=== PATIENT | male | born 1985 | race Caucasian/White ===

== ENCOUNTER 2017-09-07 00:43 | Emergency (ER) | payer BC ==
[2017-09-07] MEDS ORDERED: ONDANSETRON 4 MG/2 ML VIAL IVP ONE (00:53)
[2017-09-07] MEDS ORDERED: HYDROmorphONE/DILAUDID 1 MG/ML INJ IVP ONE ×3 (00:53→03:10)
[2017-09-07] MEDS ORDERED: NS 1,000 ML IV ONE (00:53)
[2017-09-07 01:08] LABS: % IMMATURE GRANULYOCYTES 0.4 % (0.0-1.1); ABSOLUTE IMMATURE GRANULOCYTES 0.05 10^3/uL (0.00-0.10); ADD DIFF? NO; ADD MORPH? NO; ADD SCAN? NO; ATYPICAL LYMPHOCYTE FLAG 30 (0-99); FRAGMENT RBC FLAG 0 (0-99); HEMATOCRIT 47.6 % (40.0-51.0); HEMOGLOBIN 16.7 g/dL (13.7-17.5); LEFT SHIFT FLG 0 (0-99); LIPEMIA HEMOLYSIS FLAG 90 (0-99); MEAN CELL HEMOGLOBIN 30.1 pg (27.9-34.1); MEAN CELL HEMOGLOBIN CONCENTR. 35.1 g/dL (32.4-36.7); MEAN CELL VOLUME 85.9 fL (81.5-99.8); MEAN PLATELET VOLUME 10.1 fL (8.7-11.7); PLATELET CLUMPS FLAG 10 (0-99); PLATELET COUNT 315 10^3/uL (150-400); RED BLOOD CELL COUNT 5.54 10^6/uL (4.40-6.38); RED CELL DISTRIBUTION WIDTH 13.2 % (11.5-15.2)
[2017-09-07 01:18] LABS: ANION GAP 17 mEq/L (8-16); CALCIUM 9.6 mg/dL (8.5-10.4); CARBON DIOXIDE 21 mEq/l (22-31); CHLORIDE 108 mEq/L (97-110); CREATININE 1.3 mg/dL (0.7-1.3); GLOMERULAR FILTRATION RATE > 60; GLUCOSE 111 mg/dL (70-100); POTASSIUM 3.8 mEq/L (3.5-5.2); SODIUM 146 mEq/L (134-144)
[2017-09-07] MEDS ORDERED: TAMSULOSIN HCL 0.4 MG CAP PO ONE (01:20)
[2017-09-07] MEDS ORDERED: KETOROLAC 30 MG/1 ML SDV IVP ONE (01:24)
--- NOTE | 2017-09-07 01:28 | EDPHY ---
H & P Time Seen by Provider: 09/07/17 00:53 HPI/ROS: HPI Right flank pain. Vomiting. 32-year-old male by private vehicle with his significant other. This patient reports that he was awakened at 12:30 a.m. with cramping severe right-sided flank pain. He had associated nausea and 1 episode of nonbilious, nonbloody vomiting when he got the emergency department here. No prior history of kidney stones. No history of fall or trauma. No fever. No other complaints. ROS: Constitutional: No fever, no chills. No weakness. Eyes: No discharge. No changes in vision. ENT: No sore throat. No nasal congestion or rhinorrhea. Respiratory: No cough. No shortness of breath. Cardiac: No chest pain, no palpitations. Gastrointestinal: No abdominal pain, as above, no diarrhea. Genitourinary: No hematuria. No dysuria or increased frequency with urination. Musculoskeletal: As above. No neck pain. No myalgias or arthralgias. Skin: No rashes. Neurological: No headache. No focal weakness or altered sensation. Past medical history: He denies any significant past medical history. Social history: Nonsmoker. No alcohol. Here with his significant other. Physical Exam: General Appearance: Alert, he appears uncomfortable. This patient is responding to questions appropriately and in full sentences. This patient appears well-hydrated and well-nourished. Eyes: Pupils equal and round no pallor or injection. No lid edema, erythema or injection. Respiratory: There are no retractions, lungs are clear to auscultation with good air movement bilaterally. Cardiovascular: Regular rate and rhythm. No murmur. Gastrointestinal: Abdomen is soft with vague right-sided abdominal tenderness on palpation which is mild, no masses, bowel sounds normal. No focal tenderness at McBurney's point. No Chapman sign. Neurological: Motor sensory function is grossly intact. Cranial nerves are normal. Gait is normal. Skin: Warm and dry, no rashes. Musculoskeletal: Neck is supple and nontender. Mild right CVA tenderness on palpation. No left-sided CVA tenderness on palpation. Extremities are symmetrical. All joints range without pain or impingement. Psychiatric: No agitation. No depression. Database: EKG: Imaging: CT of the abdomen and pelvis without contrast: Significant for 3-4 mm mid right -sided ureteral stone with mild associated hydronephrosis. Study otherwise normal. Results were discussed with staff radiologist Dr. Bruno Parham. Procedures: Emergency department course: IV placed. Vital signs reviewed. He was started on IV normal saline with 1 L to be given over the next hour. He was initially medicated with 1 mg of IV hydromorphone, and 4 mg of IV Zofran. He was sent for CT imaging as above. 1:25 a.m., patient re-evaluated. Pain controlled at this time. Results of CT scan, diagnosis and emergency department workup discussed with him and his significant other. He was given 0.4 mg of Flomax orally and 30 mg of IV Toradol. He has no contraindications to NSAIDs. 2:30 a.m., the patient is requesting more pain medication. He was given an additional 0.5 mg of IV hydromorphone. 3:15 a.m., patient given a 2nd 0.5 mg doses of IV hydromorphone for pain control. He has had 2 mg total. Discussed admission with him if pain is not controlled on re-evaluation. 4:00 a.m., patient re-evaluated. Pain well controlled. He feels comfortable going home at this time. I discussed follow-up with Urology. I discussed ibuprofen dosing. I will discharge him with a prescription for Flomax as well as some Vicodin and stool softeners. Return to emergency department precautions reviewed with him. He understands his follow-up. All of his questions were answered. He was discharged in good condition. Differential Diagnosis: The differential diagnosis on this patient includes but is not limited to right- sided kidney stone. Appendicitis, cholecystitis, testicular torsion unlikely. This represents a partial list of diagnoses considered. These considerations are based on history, physical exam, past history, reassessment and diagnostic testing. Smoking Status: Never smoked Constitutional: Initial Vital Signs Temperature (C) 36.4 C 09/07/17 00:46 Heart Rate 93 09/07/17 00:46 Respiratory Rate 24 H 09/07/17 00:46 Blood Pressure 140/106 H 09/07/17 00:46 O2 Sat (%) 99 09/07/17 00:46 O2 Delivery Mode Room Air O2 (L/minute) 2 Allergies/Adverse Reactions: No Known Allergies Allergy (Unverified 09/07/17 00:44) Home Medications: Medication Instructions Recorded Docusate Sodium [Colace 100 MG (*)] 100 mg PO TID #20 cap 09/07/17 Hydrocodone/APAP 5/325 [[place] 1 - 2 tab PO Q4-6PRN PRN #14 tab 09/07/17 5/325 (*)] Tamsulosin HCl [Flomax 0.4 MG (*)] 0.4 mg PO DAILY #4 cap 09/07/17 Medical Decision Making - Data Points Laboratory Results: Laboratory Results 09/07/17 00:57 09/07/17 00:57 09/07/17 09/07/17 09/07/17 01:50 00:57 00:57 WBC 12.54 10^3/uL H 10^3/uL (3.80-9.50) RBC 5.54 10^6/uL 10^6/uL (4.40-6.38) Hgb 16.7 g/dL g/dL (13.7-17.5) Hct 47.6 % % (40.0-51.0) MCV 85.9 fL fL (81.5-99.8) MCH 30.1 pg pg (27.9-34.1) MCHC 35.1 g/dL g/dL (32.4-36.7) RDW 13.2 % % (11.5-15.2) Plt Count 315 10^3/uL 10^3/uL (150-400) MPV 10.1 fL fL (8.7-11.7) Neut % (Auto) 37.4 % L % (39.3-74.2) Lymph % (Auto) 48.2 % H % (15.0-45.0) [place] % (Auto) 10.8 % % (4.5-13.0) Eos % (Auto) 2.7 % % (0.6-7.6) Baso % (Auto) 0.5 % % (0.3-1.7) Nucleat RBC Rel Count 0.0 % % (0.0-0.2) Absolute Neuts (auto) 4.69 10^3/uL 10^3/uL (1.70-6.50) Absolute Lymphs (auto) 6.05 10^3/uL H 10^3/uL (1.00-3.00) Absolute Monos (auto) 1.35 10^3/uL H 10^3/uL (0.30-0.80) Absolute Eos (auto) 0.34 10^3/uL 10^3/uL (0.03-0.40) Absolute Basos (auto) 0.06 10^3/uL 10^3/uL (0.02-0.10) Absolute Nucleated RBC 0.00 10^3/uL 10^3/uL (0-0.01) Immature Gran % 0.4 % % (0.0-1.1) Immature Gran # 0.05 10^3/uL 10^3/uL (0.00-0.10) Sodium 146 mEq/L H mEq/L (134-144) Potassium 3.8 mEq/L mEq/L (3.5-5.2) Chloride 108 mEq/L mEq/L (97-110) Carbon Dioxide 21 mEq/l L mEq/l (22-31) Anion Gap 17 mEq/L H mEq/L (8-16) BUN 19 mg/dL mg/dL (7-23) Creatinine 1.3 mg/dL mg/dL (0.7-1.3) Estimated GFR > 60 Glucose 111 mg/dL H mg/dL (70-100) Calcium 9.6 mg/dL mg/dL (8.5-10.4) Urine Color YELLOW Urine Appearance MODERATELY TURBID Urine pH 5.0 (5.0-7.5) Ur Specific [place] 1.024 (1.002-1.030) Urine Protein 1+ H (NEGATIVE) Urine Ketones NEGATIVE (NEGATIVE) Urine Blood 3+ H (NEGATIVE) Urine Nitrate NEGATIVE (NEGATIVE) Urine Bilirubin NEGATIVE (NEGATIVE) Urine Urobilinogen NEGATIVE EU EU (0.2-1.0) Ur Leukocyte Esterase NEGATIVE (NEGATIVE) Urine RBC 50-182 /hpf H /hpf (0-3) Urine WBC 1-3 /hpf /hpf (0-3) Ur Epithelial Cells NONE SEEN /lpf /lpf (NONE-1+) Urine Mucus 1+ /lpf /lpf (NONE-1+) Urine Glucose NEGATIVE (NEGATIVE) Medications Given: Discontinued Medications Hydromorphone HCl (Dilaudid) 1 mg IVP EDNOW ONE Stop: 09/07/17 00:54 Last Admin: 09/07/17 01:06 Dose: 1 mg Hydromorphone HCl (Dilaudid) 0.5 mg IVP EDNOW ONE Stop: 09/07/17 02:35 Last Admin: 09/07/17 02:36 Dose: 0.5 mg Hydromorphone HCl (Dilaudid) 0.5 mg IVP EDNOW ONE Stop: 09/07/17 03:11 Last Admin: 09/07/17 03:17 Dose: 0.5 mg Sodium Chloride (Ns) 1,000 mls @ 0 mls/hr IV EDNOW ONE; Wide Open PRN Reason: Protocol Stop: 09/07/17 00:54 Last Admin: 09/07/17 01:06 Dose: 1,000 mls Ketorolac Tromethamine (Toradol) 30 mg IVP EDNOW ONE Stop: 09/07/17 01:25 Last Admin: 09/07/17 01:29 Dose: 30 mg Ondansetron HCl (Zofran) 4 mg IVP EDNOW ONE Stop: 09/07/17 00:54 Last Admin: 09/07/17 01:06 Dose: 4 mg Tamsulosin HCl (Flomax) 0.4 mg PO EDNOW ONE Stop: 09/07/17 01:21 Last Admin: 09/07/17 01:29 Dose: 0.4 mg Departure - Departure Disposition: Home, Routine, Self-Care Clinical Impression: Calculus of right kidney Condition: Good Instructions: Kidney Stones (ED) Additional Instructions: Read and follow provided instructions. Follow-up with Urology this week for re-evaluation as discussed. Take medication as prescribed. [place]/Percocet dosin-2 every 4-6 [address] for [address] Do not drive on this medication. Do not start taking ibuprofen until tomorrow morning. Ibuprofen dosin mg every 6 hours with meals for the next 3 days only. Return to the emergency department for worsening pain, vomiting, fever or other serious concerns. Referrals: Tereza Daniel MD [Medical Doctor] - As per Instructions May Buckley MD [Medical Doctor] - As per Instructions Prescriptions: Docusate Sodium [Colace 100 MG (*)] 100 mg PO TID #20 cap Hydrocodone/APAP 5/325 [[place] 5/325 (*)] 1 - 2 tab PO Q4-6PRN PRN #14 tab PRN Reason: Pain, Moderate Tamsulosin HCl [Flomax 0.4 MG (*)] 0.4 mg PO DAILY #4 cap
[2017-09-07 01:37] VITALS: O2SAT 95
[2017-09-07 02:02] LABS: COLOR YELLOW; LEUKOCYTE ESTERASE,URINE NEGATIVE (NEGATIVE); NITRITE,URINE NEGATIVE (NEGATIVE)
[2017-09-07 02:10] LABS: MUCUS 1+ /lpf (NONE-1+); RBC,URINE 50-182 /hpf (0-3)
[2017-09-07] MEDS ORDERED: HYDROmorphONE/DILAUDID 1 MG/ML INJ ONE (02:29)
[2017-09-07 04:30] VITALS: BP 132/79; PULSE 95; RESP 18; TEMP 98.6
== END 2017-09-07 04:28 | disposition home or self-care (01) ==
DX: N20.0 Calculus of kidney (principal); E86.9 Volume depletion, unspecified
CPT/HCPCS: 96374; J1170; J1885; J2405

== ENCOUNTER 2017-09-09 00:03 | Observation (INO) | payer BC ==
[2017-09-09] MEDS ORDERED: NS 1,000 ML IV ONE ×2 (00:32→01:17)
[2017-09-09] MEDS ORDERED: ONDANSETRON 4 MG/2 ML VIAL IVP ONE (00:32)
[2017-09-09] MEDS ORDERED: ONDANSETRON 4 MG/2 ML VIAL ONE (00:35)
[2017-09-09] MEDS ORDERED: HYDROmorphONE/DILAUDID 1 MG/ML INJ ONE (00:36)
[2017-09-09] MEDS ORDERED: KETOROLAC 15 MG/1 ML SDV ONE (00:37)
[2017-09-09] MEDS ORDERED: KETOROLAC 15 MG/1 ML SDV IVP ONE (00:43)
[2017-09-09] MEDS ORDERED: HYDROmorphONE/DILAUDID 1 MG/ML INJ IVP ONE (00:44)
[2017-09-09 01:12] LABS: % IMMATURE GRANULYOCYTES 0.3 % (0.0-1.1); ABSOLUTE IMMATURE GRANULOCYTES 0.05 10^3/uL (0.00-0.10); ADD DIFF? NO; ADD MORPH? NO; ADD SCAN? NO; ANION GAP 17 mEq/L (8-16); ATYPICAL LYMPHOCYTE FLAG 0 (0-99); CARBON DIOXIDE 21 mEq/l (22-31); CHLORIDE 105 mEq/L (97-110); FRAGMENT RBC FLAG 0 (0-99); GLOMERULAR FILTRATION RATE 39; GLUCOSE 104 mg/dL (70-100); HEMATOCRIT 44.2 % (40.0-51.0); HEMOGLOBIN 15.3 g/dL (13.7-17.5); LEFT SHIFT FLG 10 (0-99); LIPEMIA HEMOLYSIS FLAG 90 (0-99); MEAN CELL HEMOGLOBIN 29.5 pg (27.9-34.1); MEAN CELL HEMOGLOBIN CONCENTR. 34.6 g/dL (32.4-36.7); MEAN CELL VOLUME 85.2 fL (81.5-99.8); MEAN PLATELET VOLUME 10.4 fL (8.7-11.7); PLATELET CLUMPS FLAG 0 (0-99); PLATELET COUNT 236 10^3/uL (150-400); POTASSIUM 4.2 mEq/L (3.5-5.2); RED BLOOD CELL COUNT 5.19 10^6/uL (4.40-6.38); RED CELL DISTRIBUTION WIDTH 13.2 % (11.5-15.2); SODIUM 143 mEq/L (134-144)
[2017-09-09 01:15] LABS: COLOR YELLOW; LEUKOCYTE ESTERASE,URINE NEGATIVE (NEGATIVE); NITRITE,URINE NEGATIVE (NEGATIVE)
[2017-09-09 01:19] LABS: MUCUS TRACE /lpf (NONE-1+); RBC,URINE 50-182 /hpf (0-3)
--- NOTE | 2017-09-09 01:29 | EDPHY ---
H & P Stated Complaint: R sided flank pain, kidney stone on Thursday Time Seen by Provider: 09/09/17 01:03 HPI/ROS: HPI The patient presents with recurrent right-sided flank pain which is achy in nature and radiates to his right lower quadrant and is severe. It began at about 9:00 p.m. tonight until to max intensity at 11:00 p.m.. He took his pain medication at home, then vomited it up and then came into the emergency department. On September 07 he was diagnosed with a 3-4 mm right-sided ureteral stone with mild hydronephrosis found on CT scan. He says the pain feels similar to this though has moved a bit distal in location. He is able to urinate and has been drinking plenty of fluids. He has no prior history of kidney stone. He does not have any fever.. REVIEW OF SYSTEMS Constitutional: No fever, no chills. Eyes: No discharge. ENT: No sore throat. Cardiovascular: No chest pain, no palpitations. Respiratory: No cough, no shortness of breath. Gastrointestinal: No abdominal pain, positive for vomiting. Genitourinary: No hematuria. Musculoskeletal: No back pain. Skin: No rashes. Neurological: No headache. PMHx: Recent diagnosis of kidney stone Housed PHYSICAL General Appearance: Alert, no distress Eyes: Pupils equal and round no pallor or injection ENT, Mouth: Mucous membranes moist Respiratory: There are no retractions, lungs are clear to auscultation Cardiovascular: Regular rate and rhythm Gastrointestinal: Abdomen is soft with mild tenderness in the right lower quadrant, no masses, bowel sounds normal Back: Right flank tenderness Neurological: A&O, moves all extremities Skin: Warm and dry, no rashes Musculoskeletal: Neck is supple non tender Extremities: symmetrical, full range of motion Psychiatric: Patient is oriented X 3, there is no agitation Source: Patient, Old records Exam Limitations: No limitations - Personal History Current Tetanus/Diphtheria Vaccine: Yes Current Tetanus Diphtheria and Acellular Pertussis (TDAP): Yes - Medical/Surgical History Hx Asthma: No Hx Chronic Respiratory Disease: No Hx Diabetes: No Hx Cardiac Disease: No Hx Renal Disease: No Hx Cirrhosis: No Hx Alcoholism: No Hx HIV/AIDS: No Hx Splenectomy or Spleen Trauma: No Other PMH: denies - Social History Smoking Status: Never smoked Constitutional: Initial Vital Signs Temperature (C) 36.7 C 09/09/17 00:13 Heart Rate 82 09/09/17 00:13 Respiratory Rate 18 09/09/17 00:13 Blood Pressure 120/78 09/09/17 00:13 O2 Sat (%) 98 09/09/17 00:13 O2 Delivery Mode Room Air Allergies/Adverse Reactions: No Known Allergies Allergy (Unverified 09/09/17 00:13) Home Medications: Medication Instructions Recorded Docusate Sodium [Colace 100 MG (*)] 100 mg PO TID #20 cap 09/07/17 Hydrocodone/APAP 5/325 [[place] 1 - 2 tab PO Q4-6PRN PRN #14 tab 09/07/17 5/325 (*)] Tamsulosin HCl [Flomax 0.4 MG (*)] 0.4 mg PO DAILY #4 cap 09/07/17 Medical Decision Making - Diagnostics Imaging Results: Ultrasound kidneys shows mild hydronephrosis, kidney stone is visualized at the right UVJ, discussed with Dr. Mccoy of Radiology. Imaging: Discussed imaging studies w/ score caller Radiologist Differential Diagnosis: 32-year-old male, 2 days ago was diagnosed with right-sided ureterolithiasis based on CT scan, now returns with increased pain and vomiting. On exam, he has normal vital signs, he has received pain medication prior to my assessment is feeling much better. Labs were checked and did reveal increasing creatinine to 2.0. UA showed continued hematuria without any signs of infection. Ultrasound demonstrated mild hydronephrosis again, now stone has migrated to the UVJ on the right. CT measures the stone at 3-4 mm, thus it has a good chance of passing on its own. Patient was reassessed and after receiving fluids and pain medication, he had recurrence of his pain. He does not feel well enough to go home. Given his increased creatinine from 1.3-2.0, I feel he should be watched with continued hydration. I have discussed the case with the hospitalist machine stone polisher apprentice Dr. Reich who will admit the patient for observation. - Data Points Laboratory Results: Laboratory Results 09/09/17 00:30 09/09/17 00:30 09/09/17 09/09/17 09/09/17 00:30 00:30 00:25 WBC 14.55 10^3/uL H 10^3/uL (3.80-9.50) RBC 5.19 10^6/uL 10^6/uL (4.40-6.38) Hgb 15.3 g/dL g/dL (13.7-17.5) Hct 44.2 % % (40.0-51.0) MCV 85.2 fL fL (81.5-99.8) MCH 29.5 pg pg (27.9-34.1) MCHC 34.6 g/dL g/dL (32.4-36.7) RDW 13.2 % % (11.5-15.2) Plt Count 236 10^3/uL D 10^3/uL (150-400) MPV 10.4 fL fL (8.7-11.7) Neut % (Auto) 79.6 % H % (39.3-74.2) Lymph % (Auto) 10.7 % L % (15.0-45.0) [place] % (Auto) 8.4 % % (4.5-13.0) Eos % (Auto) 0.7 % % (0.6-7.6) Baso % (Auto) 0.3 % % (0.3-1.7) Nucleat RBC Rel Count 0.0 % % (0.0-0.2) Absolute Neuts (auto) 11.59 10^3/uL H 10^3/uL (1.70-6.50) Absolute Lymphs (auto) 1.55 10^3/uL 10^3/uL (1.00-3.00) Absolute Monos (auto) 1.22 10^3/uL H 10^3/uL (0.30-0.80) Absolute Eos (auto) 0.10 10^3/uL 10^3/uL (0.03-0.40) Absolute Basos (auto) 0.04 10^3/uL 10^3/uL (0.02-0.10) Absolute Nucleated RBC 0.00 10^3/uL 10^3/uL (0-0.01) Immature Gran % 0.3 % % (0.0-1.1) Immature Gran # 0.05 10^3/uL 10^3/uL (0.00-0.10) Sodium 143 mEq/L mEq/L (134-144) Potassium 4.2 mEq/L mEq/L (3.5-5.2) Chloride 105 mEq/L mEq/L (97-110) Carbon Dioxide 21 mEq/l L mEq/l (22-31) Anion Gap 17 mEq/L H mEq/L (8-16) BUN 22 mg/dL mg/dL (7-23) Creatinine 2.0 mg/dL H D mg/dL (0.7-1.3) Estimated GFR 39 Glucose 104 mg/dL H mg/dL (70-100) Calcium 9.0 mg/dL mg/dL (8.5-10.4) Urine Color YELLOW Urine Appearance HAZY Urine pH 5.0 (5.0-7.5) Ur Specific [place] 1.021 (1.002-1.030) Urine Protein NEGATIVE (NEGATIVE) Urine Ketones 1+ H (NEGATIVE) Urine Blood 3+ H (NEGATIVE) Urine Nitrate NEGATIVE (NEGATIVE) Urine Bilirubin NEGATIVE (NEGATIVE) Urine Urobilinogen NEGATIVE EU EU (0.2-1.0) Ur Leukocyte Esterase NEGATIVE (NEGATIVE) Urine RBC 50-182 /hpf H /hpf (0-3) Urine WBC 1-3 /hpf /hpf (0-3) Ur Epithelial Cells Not Reported Uric Acid Crystals PRESENT /hpf /hpf (NONE-1+) Urine Mucus TRACE /lpf /lpf (NONE-1+) Urine Glucose NEGATIVE (NEGATIVE) Medications Given: Discontinued Medications Hydromorphone HCl (Dilaudid) 0.5 mg IVP EDNOW ONE Stop: 09/09/17 00:45 Last Admin: 09/09/17 00:46 Dose: 0.5 mg Sodium Chloride (Ns) 1,000 mls @ 3,000 mls/hr IV ONCE ONE Stop: 09/09/17 00:51 Last Admin: 09/09/17 00:45 Dose: 1,000 mls Sodium Chloride (Ns) 1,000 mls @ 0 mls/hr IV EDNOW ONE; Wide Open PRN Reason: Protocol Stop: 09/09/17 01:18 Last Admin: 09/09/17 01:23 Dose: 1,000 mls Ketorolac Tromethamine (Toradol) 15 mg IVP EDNOW ONE Stop: 09/09/17 00:44 Last Admin: 09/09/17 00:46 Dose: 15 mg Ondansetron HCl (Zofran) 4 mg IVP EDNOW ONE Stop: 09/09/17 00:33 Last Admin: 09/09/17 00:46 Dose: 4 mg Departure - Departure Disposition: [facility] Inpatient Acute Clinical Impression: Ureterolithiasis Acute renal failure Qualifiers: Acute renal failure type: unspecified Qualified Code(s): N17.9 - Acute kidney failure, unspecified Condition: Good
[2017-09-09] MEDS ORDERED: LIDOCAINE 1% 200 MG in NS 100 ML IV ONE (03:09)
[2017-09-09] MEDS ORDERED: ONDANSETRON DISINTEGRATING 4 MG TAB PO PRN (03:10)
[2017-09-09] MEDS ORDERED: ACETAMINOPHEN 325 MG TAB PO PRN (03:10)
[2017-09-09] MEDS ORDERED: ONDANSETRON 4 MG/2 ML VIAL IVP PRN (03:10)
[2017-09-09] MEDS ORDERED: HYDROmorphONE/DILAUDID 1 MG/ML INJ IVP PRN (03:10)
--- NOTE | 2017-09-09 03:28 | PDGENHP ---
History and Physical - Chief Complaint Flank pain - History of Present Illness 32 yo M w/ no significant PMHx presents with flank pain. Patient first noticed pain on Thursday. He came to ED and was diagnosed with a R sided kidney stone (3- 4 mm) via CT scan and sent home after symptomatic control. Pain initially improved but then worsened again last evening. He has had inconsistent control of symptoms in the ED so he is being admitted for continued hydration, pain control, and observation of kidney function. History Information - Allergies/Home Medication List Allergies/Adverse Reactions: No Known Allergies Allergy (Unverified 09/09/17 00:13) I have personally reviewed and updated: family history, medical history - Past Medical History no pertinent PMH - Family History Positive for: cancer - Social History Smoking Status: Never smoked Review of Systems Review of Systems: ROS: 10pt was reviewed & negative except for what was stated in HPI & below Physical Exam Physical Exam: Temp Pulse Resp BP Pulse Ox 37 C 100 18 144/78 H 95 09/09/17 02:00 09/09/17 02:00 09/09/17 02:00 09/09/17 02:00 09/09/17 02:00 Constitutional: no apparent distress, not in pain Eyes: PERRL, EOMI Ears, Nose, Mouth, Throat: moist mucous membranes, no oral mucosal ulcers Cardiovascular: regular rate and rhythym, no murmur, rub, or gallop Respiratory: no respiratory distress, clear to auscultation Gastrointestinal: normoactive bowel sounds, soft, non-tender abdomen Skin: warm, normal color Musculoskeletal: full muscle strength, no muscle tenderness Neurologic: AAOx3, CN II-XII Intact Psychiatric: interacting appropriately, not anxious Lab Data & Imaging Review 09/09/17 00:30 09/09/17 00:30 WBC 14.55 10^3/uL (3.80-9.50) H 09/09/17 00:30 RBC 5.19 10^6/uL (4.40-6.38) 09/09/17 00:30 Hgb 15.3 g/dL (13.7-17.5) 09/09/17 00:30 Hct 44.2 % (40.0-51.0) 09/09/17 00:30 MCV 85.2 fL (81.5-99.8) 09/09/17 00:30 MCH 29.5 pg (27.9-34.1) 09/09/17 00:30 MCHC 34.6 g/dL (32.4-36.7) 09/09/17 00:30 RDW 13.2 % (11.5-15.2) 09/09/17 00:30 Plt Count 236 10^3/uL (150-400) D 09/09/17 00:30 MPV 10.4 fL (8.7-11.7) 09/09/17 00:30 Neut % (Auto) 79.6 % (39.3-74.2) H 09/09/17 00:30 Lymph % (Auto) 10.7 % (15.0-45.0) L 09/09/17 00:30 [place] % (Auto) 8.4 % (4.5-13.0) 09/09/17 00:30 Eos % (Auto) 0.7 % (0.6-7.6) 09/09/17 00:30 Baso % (Auto) 0.3 % (0.3-1.7) 09/09/17 00:30 Nucleat RBC Rel Count 0.0 % (0.0-0.2) 09/09/17 00:30 Absolute Neuts (auto) 11.59 10^3/uL (1.70-6.50) H 09/09/17 00:30 Absolute Lymphs (auto) 1.55 10^3/uL (1.00-3.00) 09/09/17 00:30 Absolute Monos (auto) 1.22 10^3/uL (0.30-0.80) H 09/09/17 00:30 Absolute Eos (auto) 0.10 10^3/uL (0.03-0.40) 09/09/17 00:30 Absolute Basos (auto) 0.04 10^3/uL (0.02-0.10) 09/09/17 00:30 Absolute Nucleated RBC 0.00 10^3/uL (0-0.01) 09/09/17 00:30 Immature Gran % 0.3 % (0.0-1.1) 09/09/17 00:30 Immature Gran # 0.05 10^3/uL (0.00-0.10) 09/09/17 00:30 Sodium 143 mEq/L (134-144) 09/09/17 00:30 Potassium 4.2 mEq/L (3.5-5.2) 09/09/17 00:30 Chloride 105 mEq/L (97-110) 09/09/17 00:30 Carbon Dioxide 21 mEq/l (22-31) L 09/09/17 00:30 Anion Gap 17 mEq/L (8-16) H 09/09/17 00:30 BUN 22 mg/dL (7-23) 09/09/17 00:30 Creatinine 2.0 mg/dL (0.7-1.3) H D 09/09/17 00:30 Estimated GFR 39 09/09/17 00:30 Glucose 104 mg/dL (70-100) H 09/09/17 00:30 Calcium 9.0 mg/dL (8.5-10.4) 09/09/17 00:30 Urine Color YELLOW 09/09/17 00:25 Urine Appearance HAZY 09/09/17 00:25 Urine pH 5.0 (5.0-7.5) 09/09/17 00:25 Ur Specific [place] 1.021 (1.002-1.030) 09/09/17 00:25 Urine Protein NEGATIVE (NEGATIVE) 09/09/17 00: Urine Ketones 1+ (NEGATIVE) H 09/09/17 00:25 Urine Blood 3+ (NEGATIVE) H 09/09/17 00:25 Urine Nitrate NEGATIVE (NEGATIVE) 09/09/17 00: Urine Bilirubin NEGATIVE (NEGATIVE) 09/09/17 00: Urine Urobilinogen NEGATIVE EU (0.2-1.0) 09/09/17 00:25 Ur Leukocyte Esterase NEGATIVE (NEGATIVE) 09/09/17 00:25 Urine RBC 50-182 /hpf (0-3) H 09/09/17 00:25 Urine WBC 1-3 /hpf (0-3) 09/09/17 00:25 Ur Epithelial Cells Not Reported 09/09/17 00:25 Uric Acid Crystals PRESENT /hpf (NONE-1+) 09/09/17 00:25 Urine Mucus TRACE /lpf (NONE-1+) 09/09/17 00:25 Urine Glucose NEGATIVE (NEGATIVE) 12/06/17 00:25 Imaging Review: Abd U/S showing stone @ UVJ, mild stable hydronephrosis compared to CT. Assessment & Plan Assessment: 32 yo M presenting w/ nephrolithiasis. Plan: 1. Nephrolithiasis - Failed outpatient management; symptoms likely 2/2 stone becoming lodged at UVJ. No signs or symptoms of complicating infection currently. Stone 3-4 mm, doubt will need urologic intervention. - Aggressive mIVF @ 200 mL/hr - Oxycodone, Dilaudid PRN for pain control 2. Hydronephrosis - Mild, stable compared to CT dated 2 days prior. Noting small stone size doubt will need urologic intervention. 3. RENITA - Serum Cr of 2 on admission, increased from 1.3 a few days prior. Likely related to dehydration, mild hydronephrosis, and NSAID use for symptom control. - Aggressive hydration - Would avoid NSAIDs if possible - Monitor BMP Diet - Regular Code - Full Ppx - Low risk Dispo - Admit to observation status
[2017-09-09 04:05] VITALS: RESP 16
[2017-09-09] MEDS: oxyCODONE IR 5 MG TAB PO PRN ×2 (04:34→08:37)
[2017-09-09] MEDS: NS 1,000 ML IV SCH ×2 (04:38→09:48)
[2017-09-09 05:19] LABS: % IMMATURE GRANULYOCYTES 0.3 % (0.0-1.1); ABSOLUTE IMMATURE GRANULOCYTES 0.03 10^3/uL (0.00-0.10); ADD DIFF? NO; ADD MORPH? NO; ADD SCAN? NO; ATYPICAL LYMPHOCYTE FLAG 0 (0-99); FRAGMENT RBC FLAG 0 (0-99); HEMATOCRIT 42.2 % (40.0-51.0); HEMOGLOBIN 14.7 g/dL (13.7-17.5); LEFT SHIFT FLG 0 (0-99); LIPEMIA HEMOLYSIS FLAG 90 (0-99); MEAN CELL HEMOGLOBIN 29.8 pg (27.9-34.1); MEAN CELL HEMOGLOBIN CONCENTR. 34.8 g/dL (32.4-36.7); MEAN CELL VOLUME 85.6 fL (81.5-99.8); MEAN PLATELET VOLUME 9.9 fL (8.7-11.7); PLATELET CLUMPS FLAG 0 (0-99); PLATELET COUNT 201 10^3/uL (150-400); RED BLOOD CELL COUNT 4.93 10^6/uL (4.40-6.38); RED CELL DISTRIBUTION WIDTH 13.2 % (11.5-15.2)
[2017-09-09 05:33] LABS: ANION GAP 13 mEq/L (8-16); CALCIUM 8.1 mg/dL (8.5-10.4); CARBON DIOXIDE 19 mEq/l (22-31); CHLORIDE 110 mEq/L (97-110); CREATININE 1.9 mg/dL (0.7-1.3); GLOMERULAR FILTRATION RATE 42; GLUCOSE 93 mg/dL (70-100); POTASSIUM 4.7 mEq/L (3.5-5.2); SODIUM 142 mEq/L (134-144)
[2017-09-09] MEDS ORDERED: HYDROmorphone HCL/NS/PF 0.4 MG/2 ML SYR IVP ONE (06:30)
[2017-09-09 08:18] VITALS: O2SAT 94
[2017-09-09] MEDS ORDERED: HYDROCODONE/APAP 5/325 TAB PO PRN (11:30)
[2017-09-09] MEDS ORDERED: TAMSULOSIN HCL 0.4 MG CAP PO SCH (12:00)
[2017-09-09 13:40] VITALS: BP 136/75; PULSE 86; TEMP 98.8
--- NOTE | 2017-09-09 15:19 | GDS ---
[f rep st] DISCHARGE SUMMARY DISCHARGE DIAGNOSES: 1. Nephrolithiasis. 2. Hydronephrosis. 3. Acute kidney injury. PHYSICAL EXAM: GENERAL: The patient is alert. VITAL SIGNS: Afebrile at 37.1, pulse is 86, respiratory rate 16, blood pressure is 136/75. He is sa turating 94% on room air. I have seen and evaluated the patient on the day of discharge. HOSPITAL COURSE: The patient is a 32-year-old male who presented to the emergency room with complain ts of pain. He was evaluated and diagnosed with nephrolithiasis. During this hospital course, he wa s treated with IV fluids as well as Flomax and pain medication. His pain has completely resolved, sony keller passing his stone through the UV junction. He will be continued on pain medications at time of his disposition. ASSESSMENT: 1. Hydronephrosis, this is secondary to the patient's stone and is likely to resolve independently. 2. Acute kidney injury. Patient's creatinine has improved with IV fluids. There are no pending maeve dies. DISCHARGE MEDICATIONS: Please refer to EMR form. The patient has not been provided any prescriptions at the time of disposition. He will continue on Flomax as well as [place], which he was previously taking. /[id number]/MODL
--- NOTE | 2017-09-09 15:58 | ASDISCHSUM ---
Discharge Information Plan Status: Medically Cleared to Leave: Discharge Date:09/09/2017 02:13 PM CM D/C Disposition: ADT D/C Disposition:Home, Routine, Self-Care Projected Discharge Date:09/09/2017 02:13 PM Transportation at D/C: Discharge Delay Reason: Follow-Up Date:09/09/2017 02:13 PM Discharge Slot: Final Diagnosis: Placement Information Patient Contact Information Contact Name:JUDITH Relationship: Address:[address] Work Phone: City:[place] Alternate Phone: State/[place] Code:[place] [address] Email: Financial Information Financial Class:HMO and PPO Plans Primary Plan Desc:[facility] STATE Primary Plan Number:[id number] Secondary Plan Desc: Secondary Plan Number: Assessment Information Intervention Information
[2017-09-09] MEDS ORDERED: DOCUSATE SODIUM 100 MG CAP PO SCH (16:00)
== END 2017-09-09 14:13 | disposition home or self-care (01) ==
LOC: F1N 04:24
PROVIDERS: ADMIT Student in an Organized Health Care Education/Training Program; ATTEND Student in an Organized Health Care Education/Training Program
DX: N20.0 Calculus of kidney (principal); N13.30 Unspecified hydronephrosis; N17.9 Acute kidney failure, unspecified
CPT/HCPCS: 76770; 96361; 96374; 96375; 99285; G0378; J1170; J1885; J2405